=== PATIENT | female | born 1995 | race Caucasian/White ===

== ENCOUNTER 2025-06-28 19:16 | Emergency (ER) | payer MEDICAID, SELFPAY ==
--- NOTE | ~2025-06-28 | CT_ITS ---
CLINICAL HISTORY: Left flank pain, history of kidney stones CT abdomen and pelvis without contrast Comparison: None provided Findings: No consolidation or effusion. The gallbladder and solid organs are within normal limits. Nonobstructing 5 mm stone in the lower pole of the left kidney. Suspected at least partially obstructing calculus in the mid left ureter measuring 3 mm in size on series 3, image 49. No additional renal, ureteral or bladder calculi identified. No bowel obstruction, pneumoperitoneum, or pneumatosis. Pelvic contents unremarkable. Normal appendix. No acute fracture. IMPRESSION: 1. Suspected at least partially obstructing stone in the distal left ureter measuring 3 mm in size. No significant hydronephrosis. 2. Additional nonobstructing 5 mm left lower pole renal calculus. 3. Additional findings as above. This document has been electronically signed by: Quentin Reyes MD on 06/28/2025 22:51:37
[2025-06-28 19:45] VITALS: BP 138/63; PULSE 99; RESP 18; TEMP 36.8; O2SAT 97; BMI 41.5
--- NOTE | 2025-06-28 19:45 | ED.GENADULT ---
HPI - General Adult General Chief complaint: Abdominal Pain Stated complaint: ?Kidney stones Time Seen by Provider: 06/28/25 20:36 Source: patient Mode of arrival: ambulatory Limitations: no limitations History of Present Illness ED Provider: DR. Green HPI narrative: 29-year-old female history of kidney stones presented with left flank pain for 1 week on and off, pain started 10/10 then was resolved for the past 4 days pain started since yesterday again as a severe left flank radiating to the left lower abdominal area, similar to her previous renal colic episode. No history of intra-abdominal surgery in the past, no dysuria, no frequency urination, no fever, no chills. [place] nauseous with 1 time vomiting earlier today but resolved now, never required urological intervention for her previous stones. Related Data Previous Rx's ?Medication ?Instructions ?Recorded levofloxacin 500 mg tablet 500 mg PO DAILY #7 tabs 06/28/25 Allergies Allergy/AdvReac Type Severity Reaction Status Date / Time amoxicillin Allergy Unknown Verified 06/28/25 19:47 Penicillins Allergy Unknown Verified 06/28/25 19:47 Review of Systems Review of Systems: All other systems are reviewed and are negative Constitutional: Reports as per HPI and Reports no additional constitutional complaints Eyes: Reports as per HPI and Reports no additional eye complaints Reports system reviewed and no additional complaints, except as documented Cardiovascular: Reports as per HPI and Reports no additional cardiovascular complaints Respiratory: Reports as per HPI and Reports no additional respiratory complaints Gastrointestinal: Reports as per HPI and Reports no additional gastrointestinal complaints Genitourinary: Reports no additional female genitourinary complaints Musculoskeletal: Reports no additional musculoskeletal complaints Skin/Breast: Reports system reviewed and no additional complaints, except as docu Psychiatric: Reports no additional psychiatric complaints Endocrine: Reports no additional endocrine complaints Hematologic/Lymphatic: Reports no additional hematologic/lymphatic complaints Allergic/Immunologic: Reports no additional allergic/immunologic complaints Reports system reviewed and no additional complaints, except as documented and Reports Abnormal speech present PMFSH Social History Social History Smoked in Last 30 Days: No Use of substances other than those prescribed or required for medical reasons: No Advance Directives: No Advance Directives Information Provided: No Patient : No Physical Exam ED Vital Signs: Vital Signs - 24 hr 06/28/25 19:45 06/28/25 21:49 Temperature 98.2 F 98.0 F Pulse Rate 99 Respiratory Rate 18 Blood Pressure 138/63 Pulse Oximetry 97 98 Oxygen Delivery Method Room Air Room Air BMI result Body Mass Index 41.5 Vital signs have been reviewed and appear to be correct. Blood pressure elevated. Heart rate normal. Respiratory rate normal. Temperature normal. Oxygen saturation normal. Appearance: Alert. Oriented X3. No acute distress. Head: Normal external exam. Normocephalic. Atraumatic. No [place] signs noted. No raccoon eyes noted Eyes: PERRLA. EOMI. Conjunctiva and sclera normal. Eyelids normal. ENT: TM's Normal. Pharynx normal. Uvula midline. Moist mucous membranes. No trismus noted. No drooling noted. No muffled voice noted. Neck: Normal inspection. Neck supple. FROM. No adenopathy. Thyroid Normal. No meningeal signs. No neck mass noted. CVS: Normal heart rate and rhythm. Heart sound normal. No murmurs noted. Pulses normal throughout. Respiratory: No respiratory distress. Painless inspiration. Breath sounds normal. No wheezes/rales/rhonchi noted. Chest nontender. No accessory muscle usage noted or decreased air movement noted. Abdomen: Soft and nontender. Bowel sounds normal in all 4 quadrants. No distention noted. No organomegaly noted. No visible injury noted. Back: L CVA tenderness. Full range of motion noted. Skin: Skin warm and dry. Normal skin color. Normal skin turgor. No rashes/lesions/lacerations noted. Extremities: No lower extremity edema. Extremities exhibit normal range of motion. Extremities nontender. Neuro: Oriented X 3. Cranial nerve exam: II-XII are grossly intact No motor deficit. No sensory deficit. Reflexes normal. Course Course Course Narrative: This is a Rapid Medical Examination (RME) performed by Nikita Crow PA-C in triage. Full HPI, ROS, assessment and treatment plan per primary provider in the Main ED. Hx: 29 yo here for eval of L flank pain rad to L abd x1 week. pain intermittent, now worsening. hx kidney stones, feels similar. assoc hematuria. nausea, vomited over a week ago. Plan: labs, UA Reevaluation(s) Reevaluation #1: A 29-year-old female came in with left flank pain, CT abdomen pelvis revealed 3 mm stone in the distal left ureter with partial obstruction. Patient feels no pain at the moment, no nausea, no vomiting, requesting to be discharged. UA also reveals UTI patient declined to take 1st dose of antibiotic in the ED because she does not like medication but will take it right before going to bed tonight. With combination of UTI and partial kidney obstruction I offer the patient to stay in the hospital for observation and IV antibiotic but patient declined admission and wanted to be discharged home. Time: 23:07 Medications Administered Discontinued Medications Generic Name Dose Route Start Last Admin Trade Name Freq PRN Reason Stop Dose Admin Levofloxacin 500 mg 06/28/25 21:07 06/28/25 21:49 Levofloxacin 500 Mg Tablet PO 06/28/25 21:08 Not Given ONCE ONE Medical Decision Making Differential Diagnosis Differential Diagnoses: The differential diagnosis associated with the presentation includes (Acute appendicitis, acute colitis, acute diverticulitis, acute pancreatitis, UTI, pyelonephritis, kidney stone.) Admission/Observation Consideration of admission/observation: Escalation of care including admission/observation considered Lab Data MDM Lab Attestation statement: I reviewed the patient's lab results. 06/28/25 20:13 06/28/25 20:13 Labs: Lab Results 06/28/25 Range/Units 20:13 WBC 9.1 (4.8-10.8) X10*3/uL RBC 5.88 H (4.20-5.50) X10*6/uL Hgb 13.6 (12.0-16.0) g/dl Hct 42.2 (37.0-47.0) % MCV 71.8 L (80.0-98.0) fL MCH 23.1 L (27.0-33.0) pg MCHC 32.2 (31.0-35.0) g/dl RDW 13.6 (11.0-16.0) % Plt Count 403 H (160-400) X10*3/uL MPV 9.0 L (9.4-12.3) fL Immature Gran % (Auto) 0.3 (0.0-0.4) % Neut % (Auto) 67.9 (45-73) % Lymph % (Auto) 22.9 (20-40) % [place] % (Auto) 7.2 (2-11) % Eos % (Auto) 0.9 (0-4) % Baso % (Auto) 0.8 (0-2) % Lymph # (Auto) 2.1 (1.2-4.9) X10*3/uL [place] # (Auto) 0.7 (0.1-1.2) X10*3/uL Eos # (Auto) 0.1 (0.0-0.4) X10*3/uL Baso # (Auto) 0.1 (0.0-0.2) X10*3/uL Abs Immat Gran (auto) 0.03 (0.00-0.03) X10*3/uL Absolute Neuts (auto) 6.2 (2.0-8.3) x10*3/uL Absolute Nucleated RBC 0.000 (0.0-0.012) X10*3/uL Nucleated RBC % (auto) 0.0 (0.0-0.2) /100WBC Sodium 141 (135-145) mmol/L Potassium 4.5 (3.3-5.1) mmol/L Chloride 107 (96-108) mmol/L Carbon Dioxide 23 (22-29) mmol/L Anion Gap 16 (12-20) BUN 12 (9-16) mg/dL Creatinine 1.17 (0.5-1.4) mg/dL Estim Creat Clear Calc 75.0 Estimated GFR 55 Random Glucose 100 (60-115) mg/dL Calcium 9.9 (8.4-10.2) mg/dL Magnesium 2.0 (1.6-2.6) mg/dL Total Bilirubin 0.4 (0.0-1.0) mg/dL AST 23 (5-31) U/L ALT 15 (0-31) U/L Alkaline Phosphatase 56 (39-117) U/L Total Protein 7.9 (6.5-8.0) g/dL Albumin 4.8 (3.5-5.0) g/dL Lipase 17 (8-78) U/L Beta HCG, Quant < 2 mIU/mL Urine Color [place] A Urine Appearance Turbid Urine pH 6.0 (5.0-9.0) Ur Specific [place] 1.015 (1.005-1.025) Urine Protein 100 (2+) H (Neg-Trace) mg/dL Urine Glucose (UA) Negative (Negative) mg/dL Urine Ketones Trace (Negative) mg/dL Urine Blood Large (3+) H (Negative) Urine Nitrite Positive H (Negative) Ur Leukocyte Esterase Moderate (2+) H (Negative) Urine RBC >20 H (0-2) /HPF Urine WBC 11-20 H (0-5) /HPF Ur Squamous Epith Cells 6-10 (0-2) /HPF Urine Bacteria 4+ (None Seen) Hyaline Casts 0-2 (0-2) /LPF Independent Interpretation I performed an independent interpretation of an: CT Scan (Abdomen pelvis:1. Suspected at least partially obstructing stone in the distal left ureter measuring 3 mm in size. No significant hydronephrosis. 2. Additional nonobstructing 5 mm left lower pole renal calculus. 3. Additional findings as above.) Radiology Impression Discussion of test interpretation with radiology: I have reviewed the radiologist's reading. Discharge Plan Discharge Clinical Impression: UTI (urinary tract infection), Calculus of distal left ureter Patient Disposition: Home, Self-Care Instructions: Urinary Tract Infection in Women (ED), Ureteral Stones (ED) Additional Instructions: Take the antibiotic as prescribed. Drink plenty of water. Make sure you follow-up with urologist as discussed. Seek immediate medical attention if you have any fever or worsening of the pain. Prescriptions: New levofloxacin 500 mg tablet 500 mg PO DAILY Qty: 7 0RF Referrals: Otis Jackman MD [Physician, Urology] Print Language: Pashto
--- OUTSIDE RECORDS SUMMARY | 2025-06-28 20:18 | XMS_ITS ---
Author Name [facility] Organization Unknown Encounters Encounter Type Encounter Reason Primary Diagnosis Location Date Ambulatory Contact with and (suspected) exposure to covid-19 [facility] 11/04/2021 Care Team Organization Name Specialty Phone Email Start Date End Da te [facility] 11/04/2021 06/14/2024 [facility] 11/04/2021 11/04/2021
--- OUTSIDE RECORDS SUMMARY | 2025-06-28 20:18 | XMS_ITS | Clinical Summary ---
Author Organization [employer] [facility] Address [address] [place] [address] Care Team Providers Care Arc Cutter Plasma Arc Name Role Phone Unavailable Primary Care Provider Unavailabl e Encounters Date Type Department Care Team Description 05/17/2025 Population Health Risk Score [facility] (C3) Department [address] [facility] [address] [place] [address] Provider, Population Health Generic from Last 3 Months Social History Tobacco Use Types Packs/Day Years Used Date Smoking Tobacco: Never Assessed Comments Unknown Sex and Gender Information Value Date Recorded Sex Assigned at Not on file Legal Sex Female 9:16 PM EDT Gender Identity Not on file Sexual Orientation Not on file Plan of Treatment Health Maintenance Due Date Last Done Comments Depression Screening 1997 HIV Screening 1997 SDOH Screening 1997 Disability Screening 1997 Alcohol/Substance Use Screening 2009 Tobacco Screening 2009 Family Planning (PISQ) 2012 HPV Vaccines (1 - 3-dose series) 2012 Hepatitis C Screening 2015 DTaP/Tdap/Td Vaccines (1 - Tdap) 2016 Hepatitis B Vaccines (1 of 3 - 19+ 3-dose series) 2016 Pap Smear 2018 COVID-19 Vaccine (1 - 2023-2 5 season) 2025 Influenza Vaccine (#1) 2025 Zoster Vaccines (1 of 2) 2047 RSV Patients and Pa tients Aged 60 years or older (1 - 1-dose 75+ series) 2072 HIB Vaccines Aged Out No longer eligi ble based on patient's age to complete this topic Hepatitis A Vaccines Aged Out No long er eligible based on patient's age to complete this topic IPV Vaccines Aged Out No longer eligi ble based on patient's age to complete this topic Meningococcal B Vaccine Aged Out No l onger eligible based on patient's age to complete this topic Meningococcal Vaccine Aged Out No roman tacos eligible based on patient's age to complete this topic Pneumococcal Vaccine: Pediat rics (0 to 5 Years) and At-Risk Patients (6 to 49) Years Aged Out No longer eligible b ased on patient's age to complete this topic RSV under 20 months Aged Out No longe r eligible based on patient's age to complete this topic Rotavirus Vaccines Aged Out No longer eligible based on patient's age to complete this topic
--- OUTSIDE RECORDS SUMMARY | 2025-06-28 20:18 | XMS_ITS | Clinical Summary ---
Author Organization [facility] Address [address] [place] [address] Care Team Providers Care Unemployment Benefits Claims Taker Name Role Phone Unavailable Primary Care Provider Unavailabl e Social History Tobacco Use Types Packs/Day Years Used Date Smoking Tobacco: Never Assessed Comments Unknown Sex and Gender Information Value Date Recorded Sex Assigned at Not on file Legal Sex Female 8:15 AM EST Gender Identity Not on file Sexual Orientation Not on file Last Filed Vital Signs Vital Sign Reading Time Taken Comments Blood Pressure 109/73 11/04/2021 8:26 AM EST Pulse 73 11/04/2021 8:26 AM EST Temperature 37 C (98.6 F) 11/04/2021 8:26 AM EST Respiratory Rate - - Oxygen Saturation 98% 11/04/2021 8:26 AM EST Inhaled Oxygen Concentration - - Weight - - Height - - Body Mass Index - - Plan of Treatment Health Maintenance Due Date Last Done Comments Hepatitis C Virus Screening 1997 HIV Screening 2010 DTaP/Tdap/Td Vaccines (1 - Tdap) 2016 Hepatitis B Vaccines (1 of 3 - 19+ 3-dose series) 2016 Pap Smear (Ages 21-65) 2018 COVID-19 Vaccine ( - 2023-2 5 season) 2024 HPV Vaccines (1 - 3-dose SCD M series) 2024 Influenza Vaccine 05/27/2025 Pneumococcal Vaccine: Pediat theodore (0-5 Years) and At-Risk Patients (6 to 49 Years) Aged Out No longer eligible b ased on patient's age to complete this topic Insurance [id number]
--- OUTSIDE RECORDS SUMMARY | 2025-06-28 20:18 | XMS_ITS | Clinical Summary ---
Author Organization [address] Address [address] [place] [id number] Phone Care Team Providers Care Spa Director Name Role Phone Physician, Pcp Unknown Primary Care Provider Anabella vailable Social History Tobacco Use Types Packs/Day Years Used Date Smoking Tobacco: Never Assessed Comments Unknown Sex and Gender Information Value Date Recorded Sex Assigned at Not on file Legal Sex Female 7:15 PM EST Gender Identity Not on file Sexual Orientation Not on file Plan of Treatment Health Maintenance Due Date Last Done Comments DTaP,Tdap,and Td Vaccines (6 - Tdap) 2008 07/06/2002, 01/09/2001, 02/06/1999, Additional history exists HPV Vaccines (3 - 2-dose series) 03/28/2010 12/22/2009, 09/27/2009 Cervical Cancer Screening: Pap Smear 2018 COVID-19 Vaccine ( season) 2024 03/28/2021 Depression Screening 10/27/2024 HIV Screening 04/13/2025 Hepatitis C Screening 04/13/2025 Social Influencers of Health Screening 04/13/2025 Influenza Vaccine (#1) 2025 HIB Vaccines Completed 02/06/1999, 07/27, 03/08/1998 Varicella Vaccines Aged Out 02/07/1999 No longer eligible based on patient's age to complete this topic Hepatitis B Vaccines Completed 01/09/2001, 01/09/1998, 1997 IPV Vaccines Completed 07/06/2002, 01/25, 08/11/1998, Additional history exists MMR Vaccines Completed 07/14/2002, 02/06/1999 Meningococcal ACWY Vaccine Aged Out 09/27/2009 N o longer eligible based on patient's age to complete this topic Hepatitis A Vaccines Aged Out No long er eligible based on patient's age to complete this topic Meningococcal B Vaccine Aged Out No l onger eligible based on patient's age to complete this topic Pneumococcal Vaccine: Pediatrics (0 to 5 Years) and At-Risk Patients (6 to 49 Years) Aged Out No longer eligible based on patient's age to complete this topic RSV Immunization Patients Under 20 months Aged Out No longer eligible based on patient's age to complete this topic Procedures Procedure Name Priority Date/Time Associated Diagnosis Comments VITAMIN D 25 HYDROXY Routine 04/13/2025 11:53 AM EDT Oligomenorrhea LUTEINIZING HORMONE Routine 04/13/2025 1 1:53 AM EDT Oligomenorrhea FOLLICLE STIMULATING HORMONE Routine 04/13/2025 11:53 AM EDT Oligomenorrhea COMPLETE BLOOD COUNT Routine 04/13/2025 11:53 AM EDT Oligomenorrhea VITAMIN B12 Routine 04/13/2025 11:53 AM EDT Oligomenorrhea PROGESTERONE Routine 04/13/2025 11:53 AM EDT Oligomenorrhea SEX HORMONE BINDING GLOBULIN Routine 04/13/2025 11:53 AM EDT Oligomenorrhea ESTRADIOL Routine 04/13/2025 11:53 AM EDT Oligomenorrhea TESTOSTERONE FREE, BIOAVAILABLE AND TOTAL Routine 04/13/2025 11:53 AM EDT Oligomenorrhea COMPREHENSIVE METABOLIC PANEL Routine 04/13/2025 11:53 AM EDT Oligomenorrhea from Last 3 Months Results * (ABNORMAL) Testosterone free, bioavailable and total (04/13/2025 11:53 AM EDT) [facility] Testosterone 30 9 - 48 ng/dL LAB CHEMISTRY METHOD 04/13/2025 2:51 PM EDT [facility] Testosterone, Free 0.5 0.0 - 0.5 ng/dL LAB CHEMISTRY METHOD 04/13/2025 2:51 PM EDT [facility] Testosterone, Bioavailable 11(H) 1 - 9 ng/dL LAB CHEMISTRY METHOD 04/13/2025 2:51 PM EDT [facility] Sex Hormone Binding 43.4 See Comment nmol/L LAB CHEMISTRY METHOD 04/13/2025 2:51 PM EDT [facility] Comment: FEMALES: pre-menopausal 10.8 - >180 post-menopausal 23.2 - 159.1 MALES: 21-49 years 14.6 - 94.6 50-89 years 21.6 - 113.1 CHILDREN: No established reference range Over the counter supplements containing high doses of biotin may interfere with this assay. If interference is suspected, patients should be retested after refraining from biotin supplements for 72 hours. Albumin 3.9 3.2 - 5.0 g/dL LAB CHEMISTRY METHOD 04/13/2025 2:51 PM EDT [facility] Blood Venous blood specimen / Unknown Venipuncture / Unknown 04/13/2025 11:53 AM EDT 04/13/2025 12:10 PM EDT Tita Naik MD LAB BLOOD ORDERABLES Fin al Result [facility] [address] [place] [address], * Sex hormone binding globulin (04/13/2025 11:53 AM EDT) Sex Hormone Binding 43.4 See Comment nmol/L LAB CHEMISTRY METHOD 04/13/2025 2:51 PM EDT [facility] Comment: FEMALES: pre-menopausal 10.8 - >180 post-menopausal 23.2 - 159.1 MALES: 21-49 years 14.6 - 94.6 50-89 years 21.6 - 113.1 CHILDREN: No established reference range Over the counter supplements containing high doses of biotin may interfere with this assay. If interference is suspected, patients should be retested after refraining from biotin supplements for 72 hours. Blood Venous blood specimen / Unknown Venipuncture / Unknown 04/13/2025 11:53 AM EDT 04/13/2025 12:10 PM EDT us Tita Naik MD LAB BLOOD ORDERABLES Fin al Result Performing Organization Address [facility]/ZIP Co de Phone Number [facility] [address] [place] [address], [place] [phone] * (ABNORMAL) Vitamin D 25 hydroxy (04/13/2025 11:53 AM EDT) Vit D, 25-Hydroxy 12.4(L) 30.0 - 80.0 ng/mL LAB CHEMISTRY METHOD 04/13/2025 3:11 PM EDT [facility] Blood Venous blood specimen / Unknown Venipuncture / Unknown 04/13/2025 11:53 AM EDT 04/13/2025 12:10 PM EDT Tita Naik MD LAB BLOOD ORDERABLES Fin al Result Performing Organization Address [facility] de Phone Number [facility] [address] [place] [address], [place] [phone] * Progesterone (04/13/2025 11:53 AM EDT) Progesterone 7.0 ng/mL LAB CHEMISTRY METHOD 04/13/2025 2:06 PM EDT [facility] Comment: PROGESTERONE REFERENCE RANGES (NG/ML) FEMALES NORMALLY MENSTRUATING: FOLLICULAR PHASE 0.2 - 1.7 MIDCYCLE PEAK 2.3 - 242 LUTEAL PHASE 8.8 - 21.6 POSTMENOPAUSAL <0.2 - 0.9 : FIRST TRIMESTER 11.4 - 41.0 SECOND TRIMESTER 13.5 - 156 THIRD TRIMESTER 51.4 - >200 This assay should not be used in patients taking DHEA supplements as part of IVF treatment. A metabolite (DHEA-S) of this supplement has been shown to cross-react with the progesterone assay and cause falsely elevated results. Blood Venous blood specimen / Unknown Venipuncture / Unknown 04/13/2025 11:53 AM EDT 04/13/2025 12:10 PM EDT Tita Naik MD LAB BLOOD ORDERABLES Fin al Result Performing Organization Address [facility]/ZIP Co de Phone Number [facility] [address] [place] [address], * Estradiol (04/13/2025 11:53 AM EDT) Estradiol 189 See below pcg/mL LAB CHEMISTRY METHOD 04/13/2025 2:06 PM EDT [facility] Comment: ESTRADIOL REFERENCE RANGES (PG/ML) FEMALES NORMALLY MENSTRUATING: FOLLICULAR PHASE 21.4 - 164.8 MIDCYCLE PEAK 49.9 - 367.2 LUTEAL PHASE 40.2 - 259.0 POSTMENOPAUSAL: ON HRT <11 - 462.1 UNTREATED <11 - 58.3 Fulvestrant has been shown to cross-react with the estradiol assay and cause falsely elevated results. For patients being treated with fulvestrant, Estradiol ultrasensitive should be ordered. This test is performed by LC/MS and is not expected to show cross reactivity to fulvestrant. Blood Venous blood specimen / Unknown Venipuncture / Unknown 04/13/2025 11:53 AM EDT 04/13/2025 12:10 PM EDT Tita Naik MD LAB BLOOD ORDERABLES Fin al Result Performing Organization Address [facility]/ZIP Co de Phone Number [facility] [address] [place] [address], * (ABNORMAL) Complete blood count (04/13/2025 11:53 AM EDT) WBC 9.2 4.8 - 10.8 K/[facility] LAB HEMETOLOGY METHOD 04/13/2025 12:36 PM EDT [facility] RBC 5.60(H) 3.80 - 4.80 M/mcL LAB HEMETOLOGY METHOD 04/13/2025 12:36 PM EDT [facility] Hemoglobin 12.7 11.5 - 16.0 g/dL LAB HEMETOLOGY METHOD 04/13/2025 12:36 PM [facility] Hematocrit 41.6 35.0 - 47.0 % LAB HEMETOLOGY METHOD 04/13/2025 12:36 PM EDT [facility] MCV 74.0(L) 79.0 - 98.0 FL LAB HEMETOLOGY METHOD 04/13/2025 12:36 PM [facility] MCH 22.6(L) 27.0 - 32.0 pcg LAB HEMETOLOGY METHOD 04/13/2025 12:36 PM [facility] MCHC 30.5(L) 32.0 - 37.0 g/dL LAB HEMETOLOGY METHOD 04/13/2025 12:36 PM [facility] RDW 14.6 11.0 - 15.0 % LAB HEMETOLOGY METHOD 04/13/2025 12:36 PM [facility] Platelets 399 130 - 400 K/mcL LAB HEMETOLOGY METHOD 04/13/2025 12:36 PM [facility] MPV 9.4 7.0 - 11.0 FL LAB HEMETOLOGY METHOD 04/13/2025 12:36 PM [facility] NRBC 0.0 <1.0 % LAB HEMETOLOGY METHOD 04/13/2025 12:36 PM [facility] NRBC Absolute 0.00 <0.10 K/mcL LAB HEMETOLOGY METHOD 04/13/2025 12:36 PM [facility] Blood Venous blood specimen / Unknown Venipuncture / Unknown 04/13/2025 11:53 AM EDT 04/13/2025 12:11 PM EDT us Tita Naik MD LAB BLOOD ORDERABLES Fin al Result Performing Organization Address City/[facility]/ZIP Co de Phone Number [facility] [address] [place] [address], [place] [phone] * Luteinizing hormone (04/13/2025 11:53 AM EDT) Pathologist [facility] Luteinizing Hormone 9.2 See Comment mIU/mL LAB CHEMISTRY METHOD 04/13/2025 2:06 PM EDT [facility] Blood Venous blood specimen / Unknown Venipuncture / Unknown 04/13/2025 11:53 AM EDT 04/13/2025 12:10 PM EDT Narrative [facility] - 04/13/2025 2:06 PM EDT LH REFERENCE RANGES (MIU/ML) FEMALES NORMALLY MENSTRUATING: FOLLICULAR PHASE 1.9 - 12.8 MIDCYCLE PEAK 22.8 - 76.1 LUTEAL PHASE 0.6 - 13.5 POSTMENOPAUSAL: ON HRT 1.1 - 52.4 UNTREATED 8.6 - 61.8 us Tita Naik MD LAB BLOOD ORDERABLES Fin al Result Performing Organization Address [facility] Co de Phone Number [facility] [address] [place] [address], [place] [phone] * Follicle stimulating hormone (04/13/2025 11:53 AM EDT) [facility] Follicle Stimulating Hormone 2.4 See Comment mIU/mL LAB CHEMISTRY METHOD 04/13/2025 2:06 PM EDT [facility] Comment: FSH REFERENCE RANGES (MIU/ML) FEMALES NORMALLY MENSTRUATING: FOLLICULAR PHASE 2.3 - 12.6 MIDCYCLE PEAK 5.2 - 17.5 LUTEAL PHASE 1.7 - 9.5 POSTMENOPAUSAL: ON HRT 5.9 - 72.8 UNTREATED 12.7 - 132.2 Blood Venous blood specimen / Unknown Venipuncture / Unknown 04/13/2025 11:53 AM EDT 04/13/2025 12:10 PM EDT us Tita Naik MD LAB BLOOD ORDERABLES Fin al Result Performing Organization Address City/[facility]/ZIP Co de Phone Number [facility] [address] [place] [address], [place] [phone] * Vitamin B12 (04/13/2025 11:53 AM EDT) Pathologist [facility] Vitamin B-12 259 250 - 900 pcg/mL LAB CHEMISTRY METHOD 04/13/2025 2:06 PM EDT [facility] Blood Venous blood specimen / Unknown Venipuncture / Unknown 04/13/2025 11:53 AM EDT 04/13/2025 12:10 PM EDT us Tita Naik MD LAB BLOOD ORDERABLES Fin al Result Performing Organization Address [facility]/ZIP Co de Phone Number [facility] [address] [place] [address], [place] [phone] * (ABNORMAL) Comprehensive metabolic panel (04/13/2025 11:53 AM EDT) Pathologist [facility] Sodium 135 133 - 145 mmol/L LAB CHEMISTRY METHOD 04/13/2025 2:06 PM EDT [facility] Potassium 4.2 3.5 - 5.5 mmol/L LAB CHEMISTRY METHOD 04/13/2025 2:06 PM EDT [facility] Chloride 105 96 - 110 mmol/L LAB CHEMISTRY METHOD 04/13/2025 2:06 PM EDT [facility] CO2 23 21 - 32 mmol/L LAB CHEMISTRY METHOD 04/13/2025 2:06 PM EDT [facility] Anion Gap 7 3 - 11 LAB CHEMISTRY METHOD 04/13/2025 2:06 PM [facility] Glucose 112(H) 70 - 100 mg/dL LAB CHEMISTRY METHOD 04/13/2025 2:06 PM [facility] BUN 12 5 - 25 mg/dL LAB CHEMISTRY METHOD 04/13/2025 2:06 PM [facility] Creatinine 1.03 0.50 - 1.10 mg/dL LAB CHEMISTRY METHOD 04/13/2025 2:06 PM [facility] eGFR 77 >=60 mL/min/1. 73m2 LAB CHEMISTRY METHOD 04/13/2025 2:06 PM [facility] Comment:Calculation based on the Chronic Kidney Disease Epidemiology Collaboration (CKD-EPI) equation refit without adjustment for race. BUN/Creatinine Ratio 11.7 LAB CHEMISTRY METHOD 04/13/2025 2:06 PM [facility] Calcium 9.5 8.5 - 10.5 mg/dL LAB CHEMISTRY METHOD 04/13/2025 2:06 PM [facility] AST (SGOT) 9(L) 10 - 42 unit/L LAB CHEMISTRY METHOD 04/13/2025 2:06 [facility] ALT (SGPT) 18 10 - 60 unit/L LAB CHEMISTRY METHOD 04/13/2025 2:06 PM [facility] Alkaline Phosphatase 56 42 - 121 unit/L LAB CHEMISTRY METHOD 04/13/2025 2:06 PM [facility] Total Protein 6.9 6.0 - 8.0 g/dL LAB CHEMISTRY METHOD 04/13/2025 2:06 PM [facility] Albumin 3.9 3.2 - 5.0 g/dL LAB CHEMISTRY METHOD 04/13/2025 2:06 PM [facility] Total Bilirubin 0.4 0.0 - 1.4 mg/dL LAB CHEMISTRY METHOD 04/13/2025 2:06 PM [facility] Blood Venous blood specimen / Unknown Venipuncture / Unknown 04/13/2025 11:53 AM EDT 04/13/2025 12:10 PM EDT us Tita Naik MD LAB BLOOD ORDERABLES Fin al Result [facility] ([facility] [address] [place] [address], from Last 3 Months Insurance [employer] Care Teams Spa Director Relationship Specialty Start Date End Date Physician, Pcp Unknown PCP - General 04/13/25
[2025-06-28 20:19] LABS: MANUAL DIFF FLAG NO
[2025-06-28 20:21] LABS: Hematocrit 42.2 % (37.0-47.0); Hemoglobin 13.6 g/dl (12.0-16.0); Imm Gran Abs Auto 0.03 X10*3/uL (0.00-0.03); Imm Gran Pct Auto 0.3 % (0.0-0.4); Lymphocytes Absolute Auto 2.1 X10*3/uL (1.2-4.9); Mean Corpuscular HGB Conc 32.2 g/dl (31.0-35.0); Mean Corpuscular Hemoglobin 23.1 pg (27.0-33.0); Mean Corpuscular Volume 71.8 fL (80.0-98.0); NRBC Abs Auto 0.000 X10*3/uL (0.0-0.012); NRBC Pct Auto 0.0 /100WBC (0.0-0.2); Platelet Count 403 X10*3/uL (160-400); Red Blood Count 5.88 X10*6/uL (4.20-5.50); White Blood Count 9.1 X10*3/uL (4.8-10.8)
[2025-06-28 20:30] LABS: Appearance Urine Turbid; Glucose Urine UA Negative (Negative); PH 6.0 (5.0-9.0); Specific Gravity - Urine 1.015 (1.005-1.025); UMIC TRIGGER UACC YES
[2025-06-28 20:31] LABS: UACC Culture Trigger YES
[2025-06-28 20:41] LABS: Alanine Aminotransferase 15 U/L (0-31); Albumin Level 4.8 g/dL (3.5-5.0); Alkaline Phosphatase 56 U/L (39-117); Anion Gap 16 (12-20); Aspartate Amino Transferase 23 U/L (5-31); Blood Urea Nitrogen 12 mg/dL (9-16); Calcium 9.9 mg/dL (8.4-10.2); Carbon Dioxide 23 mmol/L (22-29); Chloride 107 mmol/L (96-108); Creatinine Clr Calc Pharmacy 75.0; Estimated Glomerular Filt Rate 55; Lipase 17 U/L (8-78); Magnesium 2.0 mg/dL (1.6-2.6); Potassium 4.5 mmol/L (3.3-5.1); Sodium 141 mmol/L (135-145); Total Protein 7.9 g/dL (6.5-8.0)
[2025-06-28 21:49] VITALS: TEMP 36.7; O2SAT 98
[2025-06-28 23:12] VITALS: BP 100/62; PULSE 72; RESP 16; TEMP 36.8; O2SAT 100
[2025-06-28 23:26] VITALS: BP 100/62; PULSE 72; RESP 16; TEMP 36.8; O2SAT 100
== END 2025-06-28 23:28 | disposition home or self-care (01) ==
PROVIDERS: Physician Assistant Medical; Emergency Provider Emergency Medicine
DX: N39.0 Urinary tract infection, site not specified (principal); N20.1 Calculus of ureter; R10.9 Unspecified abdominal pain; R10.32 Left lower quadrant pain
CPT/HCPCS: 36415; 74176; 80053; 81001; 83690; 83735; 84702; 85025; 87086; 99284

== ENCOUNTER → 2025-06-28 20:46 | Outpatient (BNV) | payer MEDICAID, SELFPAY | PROVIDERS: Emergency Provider Emergency Medicine; Visit Provider Radiology Diagnostic Radiology | DX: N20.0 Calculus of kidney (principal) | CPT/HCPCS: 74176 ==